=== PATIENT | female | born 1960 | race African-American/Black ===

== ENCOUNTER → 2016-05-16 | Outpatient (CLI) | payer BC ==
[~2016-05-16] MED LIST: LORTAB 7.5/5001 TAB PO; PROTONIX20 MG PO; SYNTHROID0.1 MG/TAB PO
== END ==
LOC: COL.RAD 07:19
DX: K44.9 Diaphragmatic hernia without obstruction or gangrene (principal); K76.89 Other specified diseases of liver; D17.71 Benign lipomatous neoplasm of kidney; Z90.710 Acquired absence of both cervix and uterus; R10.31 Right lower quadrant pain
CPT/HCPCS: Q9967

== ENCOUNTER → 2016-09-18 | Outpatient (CLI) | payer BC | LOC: MC.RAD 10:33 | DX: Z12.31 Encounter for screening mammogram for malignant neoplasm of breast (principal) ==

== ENCOUNTER → 2020-03-23 | Outpatient (CLI) | payer BC | LOC: MC.RAD 08:10 | DX: Z12.31 Encounter for screening mammogram for malignant neoplasm of breast (principal) ==

== ENCOUNTER → 2021-06-02 | Outpatient (CLI) | payer BC | LOC: MC.RAD 11:09 | DX: Z12.31 Encounter for screening mammogram for malignant neoplasm of breast (principal); Z00.00 Encounter for general adult medical examination without abnormal findings ==

== ENCOUNTER → 2022-09-27 | Outpatient (CLI) | payer BC | LOC: MC.RAD 07:22 | DX: Z12.31 Encounter for screening mammogram for malignant neoplasm of breast (principal) ==

== ENCOUNTER 2023-08-29 07:05 | Day surgery (SDC) | payer BC ==
[~2023-08-29] VITALS: Ht 167.6 cm; Wt 98.3 kg
[~2023-08-29 07:05] MED LIST changes: +LR 1,000 ML IV SCH; +Ondansetron 4 MG/2 ML VIAL IV PRN
[2023-08-29] MEDS ORDERED: WEGOVY1.7 MG/0.7 SQ (07:59)
[2023-08-29] MEDS ORDERED: PRIL40 PO (08:00)
[2023-08-29] MEDS ORDERED: ZETIA 10MG TAB10 MG PO (08:01)
[2023-08-29] MEDS ORDERED: COZAAR 50MG50 MG/TAB PO (08:01)
[2023-08-29] MEDS ORDERED: FLAGYL500 MG PO (08:01)
[2023-08-29] MEDS ORDERED: SYNTHROID0.125 MG/T PO (08:02)
[2023-08-29] MEDS ORDERED: fentaNYL 50 MCG/ML 2 ML VIAL ONE (08:55)
[2023-08-29] MEDS ORDERED: Lidocaine PF 2% (20 MG/ML) 5 ML VIAL ONE (08:55)
[2023-08-29 09:45] VITALS: BP 132/75; PULSE 60; TEMP 97.9
[2023-08-29 10:00] VITALS: BP 143/78; PULSE 72
[2023-08-29 10:15] VITALS: BP 149/74; PULSE 68
[2023-08-29 10:30] VITALS: BP 154/78; PULSE 64
[2023-08-29 10:44] VITALS: BP 153/80; PULSE 67; TEMP 98.2
[2023-08-29 10:45] VITALS: BP 151/75; PULSE 64
--- NOTE | 2023-08-29 11:05 | NUR ---
0945 RETURNS TO ROOM 3 PER CART. AWAKE, ALERT. RESP UNLABORED. AMBULATES TO RECLINER WITH STANDBY ASSIST. DENIES NAUSEA OR ABD PAIN. VITAL SIGNS OBTAINE. CALL LIGHT AT SIDE 1000 T[address] PO JUICE WITHOUT NAUSEA. DISCHARGE INSTRUCTIONS REVIEWED. PATEINT VERBALIZES UNDERSTANDING. COPY PROVIDED IN DISCHARGE FOLDER 1015 AWAKE, ALERT. DENIES NEEDS [address] MANNING TO VISIT PRIOR TO DISCHARGE 1040 DR MANNING HERE TO VISIT WITH PATIENT 1055 DRESSES SELF
== END 2023-08-29 11:05 | disposition home or self-care (01) ==
LOC: SDCO 07:05
DX: Z12.11 Encounter for screening for malignant neoplasm of colon (principal); E66.01 Morbid (severe) obesity due to excess calories; K21.9 Gastro-esophageal reflux disease without esophagitis; I10 Essential (primary) hypertension; Z79.899 Other long term (current) drug therapy
CPT/HCPCS: J2405; J2704; J3010; J7120